=== PATIENT | female | born 1930 | race Caucasian/White ===

== ENCOUNTER 2016-06-02 08:03 | Emergency (ER) | payer MEDICARE, OTHER | END 2016-06-02 11:00 | disposition home or self-care (01) | LOC: ER1 08:03 | DX: B37.9 Candidiasis, unspecified (principal); I10 Essential (primary) hypertension; K21.9 Gastro-esophageal reflux disease without esophagitis; E78.5 Hyperlipidemia, unspecified; Z90.710 Acquired absence of both cervix and uterus; Z79.82 Long term (current) use of aspirin | CPT/HCPCS: 99282 ==

== ENCOUNTER → 2020-08-14 | Outpatient (CLI) | payer MEDICARE, OTHER ==
[~2020-08-14] MED LIST: ECOTRIN81 MG PO; ELIQUIS5 MG PO; HYDROCHLOROTHIA25 MG PO; METOPROLOL PO; OMEPRAZOLE40 MG PO; PRINIVIL20 MG PO
[2020-08-14 11:50] LABS: HEMOGLOBIN 12.2 gm/dl (12.3-15.3); RED BLOOD COUNT 3.94 M/UL (4.00-5.10); WHITE BLOOD COUNT 5.6 K/UL (4.5-11.0)
== END ==
LOC: EDBD 09:55 → OPSV2 09:55
PROVIDERS: Obstetrics & Gynecology
DX: Z01.818 Encounter for other preprocedural examination (principal); N81.9 Female genital prolapse, unspecified; I10 Essential (primary) hypertension; I48.91 Unspecified atrial fibrillation; I51.7 Cardiomegaly
CPT/HCPCS: 36415; 71046; 80048; 81001; 85025; 93005

== ENCOUNTER → 2020-09-14 | Outpatient (CLI) | payer MEDICARE, OTHER ==
[2020-09-14 08:54] LABS: HEMOGLOBIN 12.3 gm/dl (12.3-15.3); WHITE BLOOD COUNT 5.7 K/UL (4.5-11.0)
== END ==
LOC: LAB 08:08
PROVIDERS: Physician Assistant
DX: I48.91 Unspecified atrial fibrillation (principal); I35.0 Nonrheumatic aortic (valve) stenosis; I34.0 Nonrheumatic mitral (valve) insufficiency; I42.0 Dilated cardiomyopathy; R06.00 Dyspnea, unspecified
CPT/HCPCS: 36415; 80053; 85025

== ENCOUNTER → 2020-09-24 | Outpatient (CLI) | payer MEDICARE, OTHER | LOC: LAB 08:15 | PROVIDERS: Physician Assistant | DX: E87.6 Hypokalemia (principal) | CPT/HCPCS: 36415; 80048 ==

== ENCOUNTER 2021-02-21 22:00 | Inpatient (IN) | payer MEDICARE, OTHER ==
[~2021-02-21] VITALS: Ht 154.9 cm; Wt 73.3 kg
[~2021-02-21 22:00] MED LIST changes: -METOPROLOL PO; -OMEPRAZOLE40 MG PO
[2021-02-21 22:45] LABS: HEMOGLOBIN 10.1 gm/dl (12.3-15.3); RED BLOOD COUNT 3.76 M/UL (4.00-5.10); WHITE BLOOD COUNT 12.6 K/UL (4.5-11.0)
[2021-02-21 23:07] LABS: BORDETELLA PARAPERTUSSIS Not Detected (Not Detectd); BORDETELLA PERTUSSIS Not Detected (Not Detectd); CHLAMYDIA PNEUMONIAE Not Detected (Not Detectd); CORONAVIRUS HKU1 Not Detected (Not Detectd); CORONAVIRUS NL63 Not Detected (Not Detectd); CORONAVIRUS OC43 Not Detected (Not Detectd); CORONOAVIRUS 229E Not Detected (Not Detectd); HUMAN METAPNEUMOVIRUS Not Detected (Not Detectd); HUMAN RHINOVIRUS/ENTEROVIRUS Not Detected (Not Detectd); INFLUENZA A Not Detected (Not Detectd); INFLUENZA B Not Detected (Not Detectd); MYCOPLASMA PNEUMONIAE Not Detected (Not Detectd); PARAINFLUENZA VIRUS 1 Not Detected (Not Detectd); PARAINFLUENZA VIRUS 2 Not Detected (Not Detectd); PARAINFLUENZA VIRUS 3 Not Detected (Not Detectd); PARAINFLUENZA VIRUS 4 Not Detected (Not Detectd); RESPIRATORY SYNCYTIAL VIRUS Not Detected (Not Detectd)
[2021-02-22 00:53] LABS: SARS-CoV-2 NOT DETECTED (Not Detectd)
[2021-02-22 07:27] LABS: WHITE BLOOD COUNT 9.9 K/UL (4.5-11.0)
[2021-02-22 07:31] LABS: RED BLOOD COUNT 3.38 M/UL (4.00-5.10)
[2021-02-22] MEDS ORDERED: OMEPRAZOLE20 MG PO (08:46)
[2021-02-22] MEDS ORDERED: METOPROLOL TART50 MG PO (11:09)
[2021-02-22] MEDS ORDERED: FUROSEMIDE20 MG PO (19:24)
[2021-02-22] MEDS ORDERED: ASPIRIN EC81 MG PO (19:25)
[2021-02-22] MEDS ORDERED: DIFLUCAN150 MG PO (19:26)
[2021-02-22] MEDS ORDERED: EYE MULTIVITAM1 EAC1 PO (19:26)
[2021-02-23 02:56] LABS: HEMOGLOBIN 9.4 gm/dl (12.3-15.3); RED BLOOD COUNT 3.59 M/UL (4.00-5.10)
[2021-02-24 03:24] LABS: HEMOGLOBIN 8.9 gm/dl (12.3-15.3); RED BLOOD COUNT 3.36 M/UL (4.00-5.10)
[2021-02-24 03:42] LABS: WHITE BLOOD COUNT 9.3 K/UL (4.5-11.0)
[2021-02-25] MEDS ORDERED: ELIQUIS 2.5 MG2.5 MG PO (11:11)
[2021-02-25] MEDS ORDERED: FUROSEMIDE20 MG PO (11:11)
[2021-02-25] MEDS ORDERED: AMIODARONE HCL200 MG PO (11:11)
[2021-02-25] MEDS ORDERED: KLOR-CON M2020 MEQ PO (11:11)
[2021-02-25] MEDS ORDERED: COZAAR 25MG TAB25 MG PO (11:11)
[2021-02-25] MEDS ORDERED: METOPROLOL TART50 MG PO (11:20)
== END 2021-02-25 13:32 | disposition home or self-care (01) | DRG 291 ==
LOC: ER1 22:00 → CDU 23:48 → PROG CARE 23:48
PROVIDERS: Emergency Medicine; Internal Medicine; Internal Medicine Cardiovascular Disease; Internal Medicine Infectious Disease; ADMIT Internal Medicine
DX: I13.0 Hypertensive heart and chronic kidney disease with heart failure and stage 1 through stage 4 chronic kidney disease, or unspecified chronic kidney disease (principal); I50.23 Acute on chronic systolic (congestive) heart failure; J96.21 Acute and chronic respiratory failure with hypoxia; I48.20 Chronic atrial fibrillation, unspecified; N17.9 Acute kidney failure, unspecified; E87.2 Acidosis; I44.7 Left bundle-branch block, unspecified; Z20.822 Contact with and (suspected) exposure to COVID-19; E11.65 Type 2 diabetes mellitus with hyperglycemia; N18.30 Chronic kidney disease, stage 3 unspecified; I25.10 Atherosclerotic heart disease of native coronary artery without angina pectoris; I83.029 Varicose veins of left lower extremity with ulcer of unspecified site; E11.22 Type 2 diabetes mellitus with diabetic chronic kidney disease; Z79.01 Long term (current) use of anticoagulants; Z79.4 Long term (current) use of insulin; Z79.82 Long term (current) use of aspirin; Z98.891 History of uterine scar from previous surgery; Z83.3 Family history of diabetes mellitus; Z80.42 Family history of malignant neoplasm of prostate
CPT/HCPCS: 36415; 36600; 71045; 80048; 80053; 81001; 82550; 82553; 82803; 82962; 83036; 83605; 83735; 83874; 83880; 84100; 84484; 85025; 86140; 87040; 87633; 93005; 94660; 94760; 96374; 99285; J0282; J1940; J2405; J7070

== ENCOUNTER 2021-03-09 19:20 | Emergency (ER) | payer MEDICARE, OTHER ==
[~2021-03-09] VITALS: Ht 154.9 cm; Wt 68.9 kg
[~2021-03-09 19:20] MED LIST changes: +AMIODARONE HCL200 MG PO; +ASPIRIN EC81 MG PO; +COZAAR 25MG TAB25 MG PO; +DIFLUCAN150 MG PO; +ELIQUIS 2.5 MG2.5 MG PO; +EYE MULTIVITAM1 EAC1 PO; +FUROSEMIDE20 MG PO; +KLOR-CON M2020 MEQ PO; +METOPROLOL TART50 MG PO; +OMEPRAZOLE20 MG PO
[2021-03-09 20:17] LABS: HEMOGLOBIN 8.8 gm/dl (12.3-15.3); RED BLOOD COUNT 3.35 M/UL (4.00-5.10); WHITE BLOOD COUNT 29.9 K/UL (4.5-11.0)
== END 2021-03-10 02:12 | disposition left against medical advice (07) ==
LOC: ER1 19:20 → CDU 22:47 → ER1 22:47
PROVIDERS: Student in an Organized Health Care Education/Training Program
DX: A41.9 Sepsis, unspecified organism (principal); R65.21 Severe sepsis with septic shock; J18.9 Pneumonia, unspecified organism; I21.4 Non-ST elevation (NSTEMI) myocardial infarction; N17.9 Acute kidney failure, unspecified; Z20.822 Contact with and (suspected) exposure to COVID-19; I48.91 Unspecified atrial fibrillation; E80.7 Disorder of bilirubin metabolism, unspecified; I13.0 Hypertensive heart and chronic kidney disease with heart failure and stage 1 through stage 4 chronic kidney disease, or unspecified chronic kidney disease; I50.22 Chronic systolic (congestive) heart failure; N18.30 Chronic kidney disease, stage 3 unspecified; E11.22 Type 2 diabetes mellitus with diabetic chronic kidney disease; Z88.8 Allergy status to other drugs, medicaments and biological substances
CPT/HCPCS: 31500; 36600; 71045; 71250; 80053; 82550; 82553; 82803; 83605; 83735; 83880; 84100; 84484; 85025; 85610; 85652; 85730; 86140; 87040; 87077; 87186; 93005; 94660; 96365; 96366; 96368; 96375; 99285; J0171; J0282; J1644; J3370; J7030; U0002